=== PATIENT | male | born 1985 | race Caucasian/White ===

== ENCOUNTER 2017-08-23 19:51 | Emergency (ER) | payer MEDICAID ==
[~2017-08-23] VITALS: Ht 5787.1 cm; Wt 81.6 kg
[~2017-08-23 19:51] MED LIST: ACET-3068 PO; AZIT-63 PO; CEPH-357 PO; CLIN-80 PO; CLIN300C19 PO; HYDR-2514 PO; HYDR1TAB PO; IBUP-812 PO
[2017-08-23 20:21] LABS: BASOPHILS % (AUTO) 0.1 % (0-1); EOSINOPHILS # (AUTO) 0.1 X10'3 (0-0.9); EOSINOPHILS % (AUTO) 0.9 % (0-6); HEMATOCRIT 43.7 % (42.0-52.0); HEMOGLOBIN 15.3 g/dl (14.0-17.9); LYMPHOCYTES # (AUTO) 1.3 X10'3 (1.1-4.8); MEAN CORPUSCULAR HEMOGLOBIN 31.5 PG (27.0-31.0); MEAN CORPUSCULAR HGB CONC 35.1 % (33.0-36.5); MEAN CORPUSCULAR VOLUME 89.8 FL (78-98); MEAN PLATELET VOLUME 7.6 FL (7.4-10.4); MONOCYTES # (AUTO) 0.5 X10'3 (0-0.9); MONOCYTES % (AUTO) 6.1 % (2-12); NEUTROPHILS # (AUTO) 5.8 X10'3 (1.8-7.7); NEUTROPHILS % (AUTO) 75.9 % (42-75); PLATELET COUNT 299 X10'3 (140-440); RED BLOOD COUNT 4.86 X10'6 (4.70-6.10); WHITE BLOOD COUNT 7.6 X10'3 (4.5-11.0)
[2017-08-23 20:34] LABS: PARTIAL THROMBOPLASTIN TIME 24 SECONDS (22-32); PROTHROMBIN TIME 10.5 SECONDS (9.0-12.0)
[2017-08-23 20:39] LABS: ALANINE AMINOTRANSFERASE 46 U/L (12-78); ALBUMIN 4.2 G/DL (3.4-5.0); ALBUMIN/GLOBULIN RATIO 1.1 (1.1-1.5); ALKALINE PHOSPHATASE 65 IU/L (46-116); ANION GAP 10 (8-16); ASPARTATE AMINO TRANSFERASE 26 U/L (10-37); BLOOD UREA NITROGEN 11 MG/DL (7-18); BUN/CREATININE RATIO 11.6 (5.4-32.0); CALCIUM 9.5 MG/DL (8.5-10.1); CHLORIDE 98 MMOL/L (99-107); CREATININE 0.95 MG/DL (0.60-1.10); GLUCOSE 147 MG/DL (70-104); SODIUM 139 MMOL/L (135-145); TOTAL CARBON DIOXIDE 31.4 MMOL/L (24-32); TOTAL PROTEIN 7.9 G/DL (6.4-8.2); eGFR > 90 ML/MIN
[2017-08-23] MEDS ORDERED: LORazepam 1 MG tablet PO ONE (20:45)
[2017-08-23] MEDS ORDERED: potassium Cl 20 mEq SR tablet PO STA (20:45)
[2017-08-23] MEDS ORDERED: POTA20TA19 PO (20:49)
[2017-08-23] MEDS ORDERED: ONDA4TAB12 PO (20:49)
[2017-08-23 21:24] VITALS: BP 135/81
== END 2017-08-23 21:27 | disposition home or self-care (01) ==
LOC: ER 19:53
DX: E87.6 Hypokalemia (principal); R00.2 Palpitations; F12.10 Cannabis abuse, uncomplicated; F17.200 Nicotine dependence, unspecified, uncomplicated; Z79.899 Other long term (current) drug therapy
CPT/HCPCS: 36415; 71010; 80053; 84484; 85025; 85610; 85730; 93005; 99285

== ENCOUNTER 2019-06-12 16:57 | Emergency (ER) | payer MEDICAID ==
[~2019-06-12] VITALS: Ht 175.3 cm; Wt 74.1 kg
[~2019-06-12 16:57] MED LIST changes: -CLIN-80 PO; +CLIN-96 PO; +ONDA4TAB12 PO
[2019-06-12 17:06] VITALS: BP 126/70
[2019-06-12] MEDS ORDERED: PENI500T2 PO (17:27)
== END 2019-06-12 17:50 | disposition home or self-care (01) ==
LOC: ER 16:58
DX: K08.89 Other specified disorders of teeth and supporting structures (principal); F12.90 Cannabis use, unspecified, uncomplicated; F10.99 Alcohol use, unspecified with unspecified alcohol-induced disorder; Z79.899 Other long term (current) drug therapy; Y90.9 Presence of alcohol in blood, level not specified
CPT/HCPCS: 99283

== ENCOUNTER 2019-10-25 12:58 | Emergency (ER) | payer MEDICAID ==
[~2019-10-25] VITALS: Ht 175.3 cm; Wt 65.0 kg
[~2019-10-25 12:58] MED LIST changes: +CLIN-90 PO; -CLIN-96 PO
[2019-10-25 13:12] VITALS: BP 111/74
[2019-10-25] MEDS ORDERED: PENI500T2 PO (13:22)
[2019-10-25] MEDS ORDERED: HYDR-4353 PO (13:22)
== END 2019-10-25 13:37 | disposition home or self-care (01) ==
LOC: ER 12:59
DX: K02.9 Dental caries, unspecified (principal); F12.90 Cannabis use, unspecified, uncomplicated; Z79.2 Long term (current) use of antibiotics
CPT/HCPCS: 99283

== ENCOUNTER 2020-01-15 14:32 | Emergency (ER) | payer MEDICAID ==
[~2020-01-15] VITALS: Ht 175.3 cm; Wt 67.0 kg
[~2020-01-15 14:32] MED LIST changes: -CLIN-90 PO; +CLIN-97 PO
[2020-01-15 15:00] VITALS: BP 116/72
[2020-01-15] MEDS ORDERED: PENI500T2 PO (16:00)
== END 2020-01-15 16:19 | disposition home or self-care (01) ==
LOC: ER 14:33
DX: K08.89 Other specified disorders of teeth and supporting structures (principal); K03.81 Cracked tooth; F12.90 Cannabis use, unspecified, uncomplicated; Z79.2 Long term (current) use of antibiotics; Z79.899 Other long term (current) drug therapy
CPT/HCPCS: 99283

== ENCOUNTER 2020-04-01 19:08 | Emergency (ER) | payer MEDICAID ==
[~2020-04-01] VITALS: Ht 175.3 cm; Wt 67.4 kg
[2020-04-01 21:01] VITALS: BP 107/70
== END 2020-04-01 21:02 | disposition home or self-care (01) ==
LOC: ER 19:08
DX: S02.5XXA Fracture of tooth (traumatic), initial encounter for closed fracture (principal); F12.90 Cannabis use, unspecified, uncomplicated; Z72.89 Other problems related to lifestyle; Z79.2 Long term (current) use of antibiotics; Z79.899 Other long term (current) drug therapy; W22.8XXA Striking against or struck by other objects, initial encounter; Y93.89 Activity, other specified; Y92.89 Other specified places as the place of occurrence of the external cause; Y99.8 Other external cause status
CPT/HCPCS: 70450; 70486; 99285

== ENCOUNTER 2020-08-17 07:07 | Emergency (ER) | payer MEDICAID ==
[~2020-08-17] VITALS: Ht 175.3 cm; Wt 69.0 kg
[2020-08-17 07:09] VITALS: BP 124/85
[2020-08-17] MEDS ORDERED: AMOX-117 PO (07:23)
[2020-08-17] MEDS ORDERED: naproxen 500mg tablet PO ONE (07:25)
[2020-08-17] MEDS ORDERED: acetaminophen 325mg tablet PO ONE (07:25)
[2020-08-17] MEDS ORDERED: amox tr/potassium clavulanate 875/125mg TAB PO ONE (07:25)
== END 2020-08-17 07:38 | disposition home or self-care (01) ==
LOC: ER 07:08
DX: K04.7 Periapical abscess without sinus (principal); L03.211 Cellulitis of face; F17.200 Nicotine dependence, unspecified, uncomplicated; F12.90 Cannabis use, unspecified, uncomplicated; Z72.89 Other problems related to lifestyle; Z79.899 Other long term (current) drug therapy
CPT/HCPCS: 99284

== ENCOUNTER 2021-02-12 15:14 | Emergency (ER) | payer MEDICAID ==
[~2021-02-12] VITALS: Ht 175.3 cm; Wt 70.5 kg
[2021-02-12 15:27] VITALS: BP 130/89
[2021-02-12] MEDS ORDERED: PENI250T2 PO (15:50)
[2021-02-12] MEDS ORDERED: PRED20TA PO (15:50)
== END 2021-02-12 16:25 | disposition home or self-care (01) ==
LOC: ER 15:16
DX: K04.7 Periapical abscess without sinus (principal); K08.89 Other specified disorders of teeth and supporting structures; F12.90 Cannabis use, unspecified, uncomplicated; Z72.89 Other problems related to lifestyle; Z79.2 Long term (current) use of antibiotics; Z79.899 Other long term (current) drug therapy
CPT/HCPCS: 99283

== ENCOUNTER 2021-05-16 19:01 | Emergency (ER) | payer MEDICAID ==
[~2021-05-16] VITALS: Ht 177.8 cm; Wt 77.8 kg
[2021-05-16 19:18] VITALS: BP 124/91
[2021-05-16] MEDS ORDERED: NAPR-56 PO (20:44)
[2021-05-16] MEDS ORDERED: PENI250T2 PO (20:44)
== END 2021-05-16 21:12 | disposition home or self-care (01) ==
LOC: ER 19:01
DX: K04.7 Periapical abscess without sinus (principal); K02.9 Dental caries, unspecified; R10.84 Generalized abdominal pain; F12.90 Cannabis use, unspecified, uncomplicated; Z72.89 Other problems related to lifestyle; Z79.2 Long term (current) use of antibiotics; Z79.899 Other long term (current) drug therapy
CPT/HCPCS: 99283

== ENCOUNTER 2022-04-24 11:27 | Emergency (ER) | payer MEDICAID ==
[~2022-04-24] VITALS: Ht 177.8 cm; Wt 77.3 kg
[~2022-04-24 11:27] MED LIST changes: -AZIT-63 PO; +AZIT-83 PO
[2022-04-24 11:37] VITALS: BP 110/70
== END 2022-04-24 14:16 | disposition left against medical advice (07) ==
LOC: ER 11:27
DX: K04.7 Periapical abscess without sinus (principal); Z53.21 Procedure and treatment not carried out due to patient leaving prior to being seen by health care provider